=== PATIENT | female | born 1980 | race Caucasian/White ===

== ENCOUNTER 2017-06-11 20:53 | Emergency (ER) | payer BC ==
[2017-06-11 21:29] VITALS: BP 124/70; PULSE 78; RESP 16; TEMP 97.5; O2SAT 98
[2017-06-11] MEDS ORDERED: LIDOCAINE BUFFERED 1% 50 ML SOL SC ONE (21:45)
[2017-06-11] MEDS ORDERED: LIDOCAINE HCL 1% MPF SOL ONE (21:46)
[2017-06-11] MEDS ORDERED: TDAP VACCINE 0.5 ML SUS IM ONE ×2 (21:53→21:55)
[2017-06-11] MEDS ORDERED: BACITRACIN 500 U/GM OIN TOP ONE ×2 (21:53→21:55)
== END 2017-06-11 22:33 | disposition home or self-care (01) ==
LOC: ED 20:53
DX: S61.211A Laceration without foreign body of left index finger without damage to nail, initial encounter (principal); W23.0XXA Caught, crushed, jammed, or pinched between moving objects, initial encounter
CPT/HCPCS: 12001; 73140; 90471; 90715; 99284; A6402; A9270-GY; J2001